=== PATIENT | male | born 1995 | race Two or more races ===

== ENCOUNTER 2024-08-09 11:56 | Emergency (ER) | payer SELFPAY ==
[2024-08-09 11:59] VITALS: BMI 25.4
[2024-08-09 12:24] VITALS: BP 118/74; PULSE 74; RESP 18; TEMP 37; O2SAT 98
--- NOTE | 2024-08-09 12:34 | EDNOTE_ITS ---
<Statement entered by Antonia Flores MD - 08/09/24 15:38> As co-signing physician, I was present and available for consult prn. I concur with the plan and care as documented by the midlevel provider. ED Head Injury RME/HPI General Chief complaint: Head Injury Stated complaint: Milk crate fell on head today at work Time Seen by Provider: 08/09/24 12:22 Arrival date/time: 08/09/24 11:56 RME / HPI RME / HPI Narrative: 29-year-old male patient was sent to us from work for evaluation regarding head injury. 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 Currently complaining of headache severity 6 out of 10. Denies any neck pain. Denies any other complaints inci dent having 2 hours prior to ER visit. Patient is ambulatory. Related Data Previous Rx's ?Medication ?Instructions ?Recorded ondansetron 4 mg disintegrating 4 mg PO Q6H PRN nausea and 06/10/19 tablet vomiting #14 tabs ibuprofen 800 mg tablet 800 mg PO TID PRN pain #30 t abs 08/09/24 Allergies Allergy/AdvReac Type Severity Reaction Status Date / Time No Known Allergies Allergy Verified 06/10/19 15:47 Review of Systems Review of Systems Narrative Review of Systems: Review of system reviewed and within normal limits except mentioned in HPI ED Exam Narrative Physical exam: VITAL SIGNS: Reviewed. GENERAL APPEARANCE: Alert and interactive, follows commands, no acute distress, HEAD AND FACE: Tenderness to the scalp, top of the head no bruising no crepitus ENT: PERRL, pink conjunctivitis, eyelid no trauma, Mucous membrane moist. NECK: Supple, nontender, no nuchal rigidity. CHEST: No tenderness, no crepitus, no paradoxical movement, no retractions. LUNGS: Clear, well ventilated, symmetric, no rales, no wheezing, no ronchi, no stridor, good breath sounds bilaterally. HEART: Regular rate, regular rhythm, no murmur, no gallops. ABDOMEN: Soft, positive bowel sounds, nondistended, no guarding, nontender, no rebound, no masses, RECTAL: Deferred. GENITAL: Deferred. NEUROLOGICAL: Gross motor function intact sensory function intact, Appropriate for age. MUSCULOSKELETAL: low back nontender, full range of motion. EXTREMITIES: Nontender, full range of motion. SKIN: Color pink, dry, no rash, no lacerations, no abrasions, no contusions. LYMPHATICS: Deferred. Course Quality Measures none Orders Category Date Time Status CT head/brain wo con Stat Exams 08/09/24 12:34 Completed Acetaminophen Tab [Tylenol ES Tab] Med 08/09/24 12:34 Discontinued 1,000 mg PO X1 ONE Vital Signs Vital signs: Vital Signs Temperature 98.6 F 08/09/24 12:24 Pulse Rate 74 08/09/24 12:24 Respiratory Rate 18 08/09/24 12:24 Blood Pressure 118/74 08/09/24 12:24 Pulse Oximetry (%) 98 08/09/24 12:24 Oxygen Delivery Method Room Air 08/09/24 12:24 Head Injury MDM Narrative MDM Narrative:: 29-year-old male patient was sent to us from work for evaluation regarding head injury. 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 Currently complaining of headache severity 6 out of 10. Denies any neck pain. Denies any other complaints incident having 2 hours prior to ER visit. Patient is ambulatory. CT scan of the head came back unremarkable. Results discussed with the patient. Patient appears nontoxic and hemodynamically stable. Patient discharged home and instructed to follow-up with primary care provider in 24 to 48 hours. Instructed to return to the emergency department immediately if worsening of symptoms Patient data External records reviewed:: None Clinical information provided by:: none Social determinants that could affect healthcare access:: none Patient has the following chronic illnesses:: None How is presenting disease/condition affected by chronic disease/condition?: no chronic disease Evaluation data The following diagnostics were reviewed and interpreted by me:: lab results and radiology exam(s) Lab and/or radiology exams considered but not ordered:: None Interpretation Summary: CT scan of the head came back normal Medications / Prescriptions Medications or Prescriptions considered but not ordered:: None Medication administrations:: Medication Administration History Discontinued Medications Acetaminophen (Acetaminophen 500 Mg Tablet) 1,000 mg PO X1 ONE Stop: 08/09/24 12:35 Last Admin: 08/09/24 12:39 Dose: 1,000 mg Documented By: GEOVANNA Tylenol Consultations Consultation(s) initiated? (list below): No Diagnosis Differential diagnosis head injury: concussion without loss of consciousness, subarachnoid hematoma and concussion with loss of consciousness Most likely diagnosis given after review of the tests above:: Scalp contusion Admission Indicated Admission indicated?: not indicated Admission Request Was there a request for admission?: No Disposition Plan Disposition Plan: Discharge Discharge Attestation Discharge Attestation: The patient was given an opportunity to ask questions and understood the discha rge instructions. Discharge instructions specifically effects, indications for sooner follow up or return to the emergency department, and the expected course of current diagnosis. Patient condition: Stable Discharge Plan Plan Patient Disposition: HOME (Self Care) Disposition Comment: stable Prescriptions/Referrals Prescriptions/Med Rec: New ibuprofen 800 mg tablet 800 mg PO TID PRN (Reason: pain) Qty: 30 0RF No Action ondansetron 4 mg tablet,disintegrating 4 mg PO Q6H PRN (Reason: nausea and vomiting) Qty: 14 0RF Referrals: Carlos Almodovar MD [Primary Care Provider] - In 1 week Problem List Clinical Impression: Contusion of scalp Patient/Caregiver Discharge Instructions Discharge Activity: activity as tolerated Education Materials: ED Scalp Contusion Additional Instructions: Thank you for the opportunity for serving you today. You are stable for discharged . You are advised to: Follow-up with your PCP in 1 to 2 days Return to ED for worsening of symptoms Increase oral fluids Take medication as prescribed Print Language: Fijian Stand Alone Forms: [facility]ri Award Info., Patient Portal Info Letter
--- NOTE | 2024-08-09 12:34 | XR_ITS ---
Examination: CT brain head without contrast. 2-D sagittal coronal reconstructions Date and time of exam:August 09, 2024 1345 hours INDICATIONS: Injury to the head today, head pain CTDI: vol (mGy):53.5 DLP: (mGycm):1018 Technique: Multiple CT axial sections of the brain have been obtained, 5 mm slice thickness. Contrast has not been administered. 2-D sagittal, coronal reconstructions have been obtained Low dose protocols were performed. One or more of the following dose reduction techniques were used; automated exposure control, adjustment of the mA and/or KV according to patient size, use of iterative reconstruction technique. Findings: No significant ventricular enlargement. Intra-axial or extra-axial hemorrhage density is not seen. No mass effect or midline shift Basal cisterns are not remarkable. Fourth ventricle is midline. Cranial vault intact. Impression: Negative for acute hemorrhage, mass effect or midline shift
[2024-08-09] MEDS: ACETAMINOPHEN 500 MG TABLET 1000 MG PO (12:39)
[2024-08-09 15:05] VITALS: BP 115/69; PULSE 63; RESP 16; TEMP 36.8; O2SAT 96
== END 2024-08-09 15:29 | disposition home or self-care (01) ==
PROVIDERS: Emergency Provider Emergency Medicine; PCP Family Medicine
DX: S01.01XA Laceration without foreign body of scalp, initial encounter (principal); S06.9X1A Unspecified intracranial injury with loss of consciousness of 30 minutes or less, initial encounter; W20.8XXA Other cause of strike by thrown, projected or falling object, initial encounter; Y93.89 Activity, other specified; Y92.512 Supermarket, store or market as the place of occurrence of the external cause; Y99.0 Civilian activity done for income or pay
CPT/HCPCS: 70450; 99284; A9270